=== PATIENT | male | born 1950 | race Caucasian/White ===

== ENCOUNTER 2019-03-05 07:22 | Day surgery (SDC) | payer MEDICARE, OTHER ==
[2019-03-05] VITALS (14 sets, daily range): BP systolic 117–160; BP diastolic 57–82; PULSE 51–78; RESP 17–25; Ht 160 cm; Wt 62.0 kg
[~2019-03-05] VITALS: Ht 160 cm; Wt 62.0 kg
[~2019-03-05 07:22] MED LIST: ASPI81TA52 PO; CARV12.579 PO; CHOL500010 PO; CILO50TA PO; CRES20 PO; ICOS1CAP PO; LEVO50TA7 PO; LISI10TA2 PO; OMEP20CA16 PO; TAMS-14 PO; TRAM50TA PO
[2019-03-05] MEDS ORDERED: FAMOTIDINE 20 MG TAB PO ONE (08:30)
[2019-03-05] MEDS ORDERED: DIPHENHYDRAMINE 50 MG CAP PO ONE (08:30)
[2019-03-05] MEDS ORDERED: DIAZEPAM 5 MG TAB PO ONE (08:30)
[2019-03-05] MEDS ORDERED: SOD CHLORIDE 0.45% 1,000 ML IV SCH (08:30)
[2019-03-05] MEDS ORDERED: IODIXANOL LOCM 100 ML BTL ONE (09:37)
[2019-03-05] MEDS ORDERED: FENTAnyl 50 MCG/ML VIAL ONE (09:37)
[2019-03-05] MEDS ORDERED: MIDAZOLAM 1 MG/ML 2 ML INJ ONE (09:37)
[2019-03-05] MEDS ORDERED: LIDOCAINE 1% (MDV) 20 ML INJ ONE (09:37)
[2019-03-05] MEDS ORDERED: SOD CHLORIDE 0.9% 1,000 ML IV SCH (11:05)
[2019-03-05] MEDS ORDERED: morphine 2 MG INJ IV PRN (11:30)
[2019-03-05] MEDS ORDERED: AL HYDROX/MG HYDROX/SIMETH 30 ML CUP PO PRN (11:30)
[2019-03-05] MEDS ORDERED: ONDANSETRON 4 MG INJ IV PRN (11:30)
[2019-03-05] MEDS ORDERED: ACETAMINOPHEN 325 MG TAB PO PRN (11:30)
== END 2019-03-05 17:46 | disposition home or self-care (01) ==
LOC: SDS 07:22
PROVIDERS: ATTEND Internal Medicine
DX: I73.9 Peripheral vascular disease, unspecified (principal); I10 Essential (primary) hypertension; I77.1 Stricture of artery; Z95.810 Presence of automatic (implantable) cardiac defibrillator; I42.9 Cardiomyopathy, unspecified
CPT/HCPCS: 36245; 71045; 75716; 80048; 80061; 85025; 85610; 85730; 93005; C1769; C1887; C1894; J1644; J2250; J2270; J3010; Q9967; 75630

== ENCOUNTER 2019-03-18 17:14 | Inpatient (IN) | payer MEDICARE, OTHER ==
[~2019-03-18] VITALS: Ht 170.2 cm; Wt 60.0 kg
[2019-03-18 17:29] VITALS: Ht 170.2 cm; Wt 60.0 kg
[2019-03-18] MEDS ORDERED: morphine 4 MG/ML VIAL IV STA (18:07)
[2019-03-18] MEDS ORDERED: ONDANSETRON 4 MG INJ IV STA (18:07)
[2019-03-18] MEDS ORDERED: ONDANSETRON 4 MG INJ IV PRN (19:00)
[2019-03-18] MEDS ORDERED: ACETAMINOPHEN 325 MG TAB PO PRN ×2 (19:00→22:30)
[2019-03-18] MEDS: LISINOPRIL 10 MG TAB PO SCH (20:42)
[2019-03-18] MEDS: ATORVASTATIN 20 MG TAB PO SCH (20:42)
[2019-03-18] MEDS: TAMSULOSIN (SR) 0.4 MG CAP PO SCH (20:42)
[2019-03-18] MEDS: CILOSTAZOL 100 MG TAB PO SCH (20:42)
[2019-03-18] MEDS ORDERED: ZOLPIDEM 5 MG TAB PO PRN (22:30)
[2019-03-18] MEDS: traMADol 50 MG TAB PO PRN (23:08)
[2019-03-18 23:50] VITALS: BP 142/67; PULSE 96; RESP 18
[2019-03-19] VITALS (13 sets, daily range): BP systolic 96–148; BP diastolic 43–85; PULSE 81–99; RESP 14–22
[2019-03-19] MEDS: traMADol 50 MG TAB PO PRN ×2 (03:59→20:14)
[2019-03-19] MEDS: DEXTROSE 5%-0.9% NACL 1,000 ML IV SCH ×2 (06:22→19:06)
[2019-03-19] MEDS: LEVOTHYROXINE 50 MCG TAB PO SCH (06:47)
[2019-03-19] MEDS: PANTOPRAZOLE (EC) 40 MG TAB PO SCH (07:20)
[2019-03-19] MEDS: morphine 2 MG INJ IV PRN ×2 (07:52→21:18)
[2019-03-19] MEDS: CHOLECALCIFEROL 1,000 UNIT TAB PO SCH (08:00)
[2019-03-19] MEDS: CILOSTAZOL 100 MG TAB PO SCH ×2 (08:00→21:00)
[2019-03-19] MEDS: ASPIRIN (EC) 81 MG TAB PO SCH (08:00)
[2019-03-19] MEDS: LISINOPRIL 10 MG TAB PO SCH ×2 (08:01→20:14)
[2019-03-19] MEDS ORDERED: HEPARIN 1000 UNITS/ML 10 ML INJ ONE ×2 (11:04→13:00)
[2019-03-19] MEDS ORDERED: GELATIN SIZE 100 SPONGE ONE ×2 (11:04→14:36)
[2019-03-19] MEDS ORDERED: THROMBIN 5000 UNIT (RECOTHROM) VIAL ONE ×2 (11:04→14:36)
[2019-03-19] MEDS ORDERED: EPHEDrine 25 MG/5 ML SYG ONE (11:57)
[2019-03-19] MEDS ORDERED: NEOSTIGMINE 3 MG/3 ML SYRINGE ONE (11:57)
[2019-03-19] MEDS ORDERED: LIDOCAINE 2% (SDV) 5 ML INJ ONE (11:57)
[2019-03-19] MEDS ORDERED: PROPOFOL 20 ML ONE (11:57)
[2019-03-19] MEDS ORDERED: SUCCINYLCHOLINE CHLORIDE 100 MG/5 ML SYG IV ONE (11:57)
[2019-03-19] MEDS ORDERED: GLYCOPYRROLATE 0.4 MG INJ ONE ×2 (11:57→14:46)
[2019-03-19] MEDS ORDERED: ROCURONIUM 50 MG INJ ONE ×2 (11:57→12:31)
[2019-03-19] MEDS ORDERED: HYDROCORTISONE 100 MG INJ ONE (12:29)
[2019-03-19] MEDS ORDERED: MEPERIDINE 100 MG INJ ONE (12:42)
[2019-03-19] MEDS ORDERED: IOHEXOL 300MG/ML 30 ML BTL ONE ×3 (13:28→14:07)
[2019-03-19] MEDS ORDERED: PROTAMINE 250 MG INJ ONE (14:33)
[2019-03-19] MEDS ORDERED: HYDROmorphONE 0.5 MG/0.5 ML SYG IV PRN ×3 (15:00)
[2019-03-19] MEDS ORDERED: ONDANSETRON 4 MG INJ IV PRN (15:00)
[2019-03-19] MEDS ORDERED: EPHEDrine 25 MG/5 ML SYG IV PRN (15:00)
[2019-03-19] MEDS ORDERED: METOCLOPRAMIDE 10 MG INJ IV PRN (15:00)
[2019-03-19] MEDS ORDERED: FENTAnyl 50 MCG/ML VIAL IV PRN ×3 (15:00)
[2019-03-19] MEDS ORDERED: hydrALAzine 20 MG INJ IV PRN (15:00)
[2019-03-19] MEDS ORDERED: LABETALOL HCL 20MG INJ IV PRN (15:00)
[2019-03-19] MEDS: CLOPIDOGREL 75 MG TAB PO SCH (15:30)
[2019-03-19] MEDS ORDERED: niCARdipine-NS 0.1MG/ML DRIP 200 ML IV SCH (19:00)
[2019-03-19] MEDS: ATORVASTATIN 20 MG TAB PO SCH (20:14)
[2019-03-19] MEDS: TAMSULOSIN (SR) 0.4 MG CAP PO SCH (20:14)
[2019-03-20] VITALS (18 sets, daily range): BP systolic 101–148; BP diastolic 43–87; PULSE 88–109; RESP 11–28
[2019-03-20] MEDS: morphine 2 MG INJ IV PRN ×3 (01:55→13:55)
[2019-03-20] MEDS: PANTOPRAZOLE (EC) 40 MG TAB PO SCH (06:36)
[2019-03-20] MEDS: LEVOTHYROXINE 50 MCG TAB PO SCH (06:36)
[2019-03-20] MEDS: CILOSTAZOL 100 MG TAB PO SCH (08:00)
[2019-03-20] MEDS: LISINOPRIL 10 MG TAB PO SCH (08:00)
[2019-03-20] MEDS: CHOLECALCIFEROL 1,000 UNIT TAB PO SCH (08:00)
[2019-03-20] MEDS: ASPIRIN (EC) 81 MG TAB PO SCH (08:01)
[2019-03-20] MEDS: CLOPIDOGREL 75 MG TAB PO SCH (08:01)
[2019-03-20] MEDS ORDERED: APIXABAN 5 MG TABLET PO SCH (09:00)
[2019-03-20] MEDS: traMADol 50 MG TAB PO PRN ×2 (11:26→16:49)
== END 2019-03-20 19:00 | disposition home or self-care (01) | DRG 254 ==
LOC: E/R 17:14 → MS1 18:54 → ICU 03-19 15:31
PROVIDERS: ADMIT Family Medicine; ATTEND Family Medicine
PROC: 047J3ZZ Dilation of Left External Iliac Artery, Percutaneous Approach (ICD-10-PCS; principal; 2019-03-19)
PROC: 04CL0ZZ Extirpation of Matter from Left Femoral Artery, Open Approach (ICD-10-PCS; 2019-03-19)
PROC: 04UJ0KZ Supplement Left External Iliac Artery with Nonautologous Tissue Substitute, Open Approach (ICD-10-PCS; 2019-03-19)
PROC: 04UL0KZ Supplement Left Femoral Artery with Nonautologous Tissue Substitute, Open Approach (ICD-10-PCS; 2019-03-19)
PROC: 04CK0ZZ Extirpation of Matter from Right Femoral Artery, Open Approach (ICD-10-PCS; 2019-03-19)
PROC: B40GYZZ Plain Radiography of Left Lower Extremity Arteries using Other Contrast (ICD-10-PCS; 2019-03-19)
PROC: B40FYZZ Plain Radiography of Right Lower Extremity Arteries using Other Contrast (ICD-10-PCS; 2019-03-19)
DX: T82.868A Thrombosis due to vascular prosthetic devices, implants and grafts, initial encounter (principal); T82.818A Embolism due to vascular prosthetic devices, implants and grafts, initial encounter; I70.723 Atherosclerosis of other type of bypass graft(s) of the extremities with rest pain, bilateral legs; I25.10 Atherosclerotic heart disease of native coronary artery without angina pectoris; E78.5 Hyperlipidemia, unspecified; I10 Essential (primary) hypertension; N40.0 Benign prostatic hyperplasia without lower urinary tract symptoms; E03.9 Hypothyroidism, unspecified; Z79.82 Long term (current) use of aspirin; Z87.891 Personal history of nicotine dependence; Z95.0 Presence of cardiac pacemaker; Z95.1 Presence of aortocoronary bypass graft; Y83.2 Surgical operation with anastomosis, bypass or graft as the cause of abnormal reaction of the patient, or of later complication, without mention of misadventure at the time of the procedure
CPT/HCPCS: 36415; 71045; 80048; 80053; 83690; 84484; 85025; 85610; 85730; 93005; 96374; 96375; 97162; J1644; J1720; J2175; J2270; J2405; J2710; J2720; J3010; J7042; Q9967